=== PATIENT | female | born 1985 | race Caucasian/White ===

== ENCOUNTER 2016-08-04 07:00 | Day surgery (SDC) | payer BC ==
[2016-08-04] MEDS ORDERED: Sodium Chloride 0.9% 10 ML Syringe FLUSH PRN (07:15)
[2016-08-04] MEDS ORDERED: Lactated Ringers 1,000 ML IV SCH (07:15)
[2016-08-04] MEDS ORDERED: Lidocaine 2% 100 MG/5 ML Syringe IVPUSH ONE (08:30)
[2016-08-04] MEDS ORDERED: Propofol 200 MG/20 ML SDV IV ONE (08:30)
[2016-08-04] MEDS ORDERED: Midazolam 1 MG/ML 2 ML SDV IV ONE (08:30)
[2016-08-04 10:57] VITALS: BP 116/78
--- NOTE | 2016-08-05 10:20 | PCM.OPNOTE ---
- General Post-Op/Procedure Note Date of Surgery/Procedure: 08/05/16 Operative Procedure(s): egd with bx Findings: gastritis irregular z line Pre Op Diagnosis: gerd Post-Op Diagnosis: gastritis. irregular z line Anesthesia Technique: MAC Primary Surgeon: Torres Conner Anesthesia Provider: Edmund Verduzco Pathology: stomach and esophagus Complications: None Condition: Good Free Text/Narrative:: see dictation
--- NOTE | 2016-08-05 16:48 | OR ---
DATE OF OPERATION: 08/05/2016 SURGEON: Torres Conner MD PROCEDURE PERFORMED: EGD with cold forceps biopsy. PREOPERATIVE DIAGNOSIS: Gastroesophageal reflux disease/esophagitis. POSTOPERATIVE DIAGNOSIS: Gastritis and irregular Z-line. INDICATIONS FOR PROCEDURE: This is a 31-year-old white female who has been referred with a history of worsening reflux symptoms since April of this year, has gotten some partial relief with a PPI as well as Carafate. She never had an EGD and was offered and accepted same. DESCRIPTION OF OPERATION: After an excellent IV sedation was administered, the bite block was inserted. The flexible endoscope was passed without difficulty down the patient's esophagus and into the stomach. The stomach was insufflated. The scope was passed through the pylorus to the second portion of the duodenum and slowly withdrawn. The following findings were noted. Duodenum was unremarkable. Stomach demonstrated diffuse gastritis. Multiple biopsies were taken. GE junction demonstrated an irregular Z-line, suggestive of intestinal metaplasia and circumferential biopsies were taken. The remainder of the esophageal exam was unremarkable. The stomach was deflated. The scope was removed. The patient tolerated the procedure well and was taken to recovery room in good condition. /[id number] /MODL
== END 2016-08-04 10:15 | disposition home or self-care (01) ==
LOC: FB.SDS 07:00
PROVIDERS: ATTEND Surgery
DX: K29.50 Unspecified chronic gastritis without bleeding (principal); K20.9 Esophagitis, unspecified; E07.9 Disorder of thyroid, unspecified; Z88.4 Allergy status to anesthetic agent; Z79.899 Other long term (current) drug therapy; Z90.49 Acquired absence of other specified parts of digestive tract; Z98.890 Other specified postprocedural states
CPT/HCPCS: 43239; 81025; 88305; 88313; 88342; J2250; J2704; J7120